=== PATIENT | female | born 2000 | race Caucasian/White ===

== ENCOUNTER 2020-08-08 10:28 | Inpatient (IN) | payer OTHER ==
[2020-08-08] MEDS ORDERED: BUTORPHANOL TARTRATE 1 MG/ML VIAL IVPB ONE (15:41)
[2020-08-08] MEDS ORDERED: AMPICILLIN - 2 GM in SODIUM CHLORIDE 100 ML IVPB ONE (15:44)
[2020-08-08] MEDS ORDERED: ELECTROLYTE-148 SOLN 1,000 ML IV SCH (15:45)
[2020-08-08] MEDS ORDERED: AMPICILLIN SODIUM 2 GM VIAL ONE (15:58)
[2020-08-08 16:08] VITALS: BMI 34.2
[2020-08-08] MEDS ORDERED: BUTORPHANOL TARTRATE 2 MG/ML VIAL ONE (16:38)
[2020-08-08] MEDS ORDERED: PROMETHAZINE HCL 25 MG/1 ML VIAL ONE (16:39)
[2020-08-08 16:55] LABS: BASO % 0.2 % (0-2.0); EOS % 0.2 % (0-4.5); HEMOGLOBIN 12.6 GM/dL (10.7-15.3); LYMPH % 12.8 % (8-40); MCH 27.1 pg (25.7-33.7); MCHC 32.4 g/dl (32.0-36.0); MEAN CELL VOLUME 83.6 fl (80-96); MONO % 7.2 % (3.8-10.2); NEUT % 79.6 % (42.8-82.8); PLATELET COUNT 173 K/MM3 (134-434); RBC 4.66 M/mm3 (3.60-5.2); RDW 16.1 % (11.6-15.6); WHITE BLOOD COUNT 8.1 K/mm3 (4.0-10.0)
[2020-08-08 17:05] LABS: INR 0.97 (0.83-1.09); PROTHROMBIN TIME (PATIENT) 11.8 SEC (9.7-13.0)
[2020-08-08 17:08] LABS: ACTIVATED PTT 29.2 SECONDS (25.2-36.5)
[2020-08-08 17:11] LABS: POTASSIUM 4.1 mmol/L (3.5-5.1)
[2020-08-08 17:13] LABS: BLOOD UREA NITROGEN 7.6 mg/dL (7-18); CALCIUM 9.3 mg/dL (8.5-10.1)
[2020-08-08 17:16] LABS: CREATININE 0.4 mg/dL (0.55-1.3)
[2020-08-08] MEDS ORDERED: OXYTOCIN 20 UNITS in 0.9% NS 20 UNIT/1,000 ML INFUS.BAG IV ONE ×2 (18:27→22:18)
[2020-08-08] MEDS ORDERED: LIDOCAINE HCL 1% PRESERVATIVE FREE - 30ML VIAL ONE (18:27)
[2020-08-08] MEDS: AMPICILLIN - 1 GM in SODIUM CHLORIDE 100 ML IVPB SCH (19:00)
[2020-08-08] MEDS ORDERED: AMPICILLIN SODIUM 1 GM VIAL ONE (19:03)
[2020-08-08] MEDS ORDERED: IBUPROFEN 600 MG TABLET (FP) PO PRN (19:39)
[2020-08-08] MEDS ORDERED: BENZOCAINE 20% 57 GM BOTTLE TP PRN (19:39)
[2020-08-08] MEDS ORDERED: WITCH HAZEL 50% (TUCKS) 40 PAD/JAR PAD TP PRN (19:39)
[2020-08-08] MEDS ORDERED: BENZOCAINE 28 GM HEMORRHOIDAL OINTMENT TP PRN (19:39)
[2020-08-08] MEDS ORDERED: BISACODYL 10 MG SUPP.RECT RC PRN (19:39)
[2020-08-08] MEDS ORDERED: ACETAMINOPHEN 325 MG TABLET (FP) PO PRN (19:39)
[2020-08-08] MEDS ORDERED: OXYTOCIN 20 UNITS in 0.9% NS 20 UNIT/1,000 ML INFUS.BAG IV SCH (19:45)
[2020-08-08 20:10] LABS: CORD BASE EXCESS -3.8 mmol/L (0-2); CORD HCO3 20.8 mmHg (20-29); CORD pH 7.368 (7.14-7.44)
[2020-08-09] MEDS: AMPICILLIN - 1 GM in SODIUM CHLORIDE 100 ML IVPB SCH (04:23)
[2020-08-09 08:10] LABS: BASO % 0.3 % (0-2.0); EOS % 0.7 % (0-4.5); HEMATOCRIT 32.4 % (32.4-45.2); HEMOGLOBIN 10.8 GM/dL (10.7-15.3); LYMPH % 20.4 % (8-40); MCH 28.4 pg (25.7-33.7); MCHC 33.2 g/dl (32.0-36.0); MEAN CELL VOLUME 85.6 fl (80-96); MEAN PLT VOLUME 11.1 fl (7.5-11.1); MONO % 9.1 % (3.8-10.2); NEUT % 69.5 % (42.8-82.8); PLATELET COUNT 136 K/MM3 (134-434); RBC 3.79 M/mm3 (3.60-5.2); RDW 16.1 % (11.6-15.6); WHITE BLOOD COUNT 7.8 K/mm3 (4.0-10.0)
[2020-08-09 08:14] LABS: CALCIUM 8.5 mg/dL (8.5-10.1)
[2020-08-09 08:17] LABS: CREATININE 0.4 mg/dL (0.55-1.3)
[2020-08-09] MEDS ORDERED: SENNOSIDES/DOCUSATE COMBO (SENNA PLUS) TABLET (UD) PO PRN (22:00)
[2020-08-10 09:19] VITALS: BP 122/70; PULSE 99; TEMP 97.9
[2020-08-15 16:09] LABS: POC NITRAZINE POS
== END 2020-08-10 11:35 | disposition home or self-care (01) | DRG 560 ==
LOC: JDEL 10:28 → JLDR 15:30 → J3W 22:25
PROVIDERS: ADMIT Student in an Organized Health Care Education/Training Program; ATTEND Student in an Organized Health Care Education/Training Program
PROC: 10E0XZZ Delivery of Products of Conception, External Approach (ICD-10-PCS; principal; 2020-08-08)
PROC: 0HQ9XZZ Repair Perineum Skin, External Approach (ICD-10-PCS; 2020-08-08)
DX: O70.0 First degree perineal laceration during delivery (principal); Z3A.39 39 weeks gestation of pregnancy; Z37.0 Single live birth
CPT/HCPCS: 36415; 36600; 59025; 59409; 80048; 82803; 83986-QW; 85025; 85610; 85730; 86780; 86850; 86900; 86901; C9803; U0003

== ENCOUNTER 2020-11-06 12:53 | Emergency (ER) | payer OTHER ==
[2020-11-06 13:19] VITALS: BP 117/70; PULSE 76; TEMP 97.5; BMI 30.2
== END 2020-11-06 13:34 | disposition home or self-care (01) ==
LOC: JERFT 12:53
DX: M67.432 Ganglion, left wrist (principal)
CPT/HCPCS: 99282-25

== ENCOUNTER 2022-11-11 11:23 | Emergency (ER) | payer OTHER ==
[2022-11-11 11:27] VITALS: BP 128/82; PULSE 108; RESP 18; TEMP 98; BMI 34.0
[2022-11-11] MEDS ORDERED: IBUPROFEN 600 MG TABLET (FP) PO ONE ×2 (12:50→12:52)
== END 2022-11-11 12:56 | disposition home or self-care (01) ==
LOC: JERFT 11:23
DX: S93.402A Sprain of unspecified ligament of left ankle, initial encounter (principal); W10.8XXA Fall (on) (from) other stairs and steps, initial encounter; Y93.01 Activity, walking, marching and hiking
CPT/HCPCS: 73610-TC-LT-FY; 73630-TC-LT; 99283-25

== ENCOUNTER 2023-02-26 20:10 | Emergency (ER) | payer OTHER ==
[2023-02-26 20:14] VITALS: BP 112/76; PULSE 95; RESP 16; TEMP 98.2; BMI 34.0
[2023-02-26] MEDS ORDERED: ACETAMINOPHEN 500 MG TABLET (FP) PO ONE (21:32)
[2023-02-26] MEDS ORDERED: ACETAMINOPHEN 500 MG TABLET (FP) ONE (21:36)
[2023-02-26 22:02] LABS: PH,URINE 7.5 (5.0-8.0); URINE APPEARANCE CLEAR; URINE BILIRUBIN NEGATIVE (NEGATIVE); URINE COLOR YELLOW; URINE GLUCOSE (UA) NEGATIVE (NEGATIVE); URINE KETONE NEGATIVE (NEGATIVE); URINE LEUK ESTERASE NEGATIVE (NEGATIVE); URINE NITRITE NEGATIVE (NEGATIVE); URINE PROTEIN NEGATIVE (NEGATIVE)
== END 2023-02-26 23:02 | disposition home or self-care (01) ==
LOC: JERFT 20:10
DX: G44.209 Tension-type headache, unspecified, not intractable (principal); Z20.822 Contact with and (suspected) exposure to COVID-19
CPT/HCPCS: 0241U-QW; 81003; 87651; 99283-25

== ENCOUNTER 2024-04-26 13:55 | Emergency (ER) | payer OTHER ==
[2024-04-26 14:07] VITALS: BP 119/81; PULSE 101; RESP 18; TEMP 98.2; BMI 34.0
[2024-04-26] MEDS ORDERED: IBUPROFEN 600 MG TABLET (FP) PO ONE (15:23)
[2024-04-26] MEDS: IBUPROFEN 600 MG TABLET (FP) PO ONE (15:27)
== END 2024-04-26 15:29 | disposition home or self-care (01) ==
LOC: JER 13:55
DX: N61.1 Abscess of the breast and nipple (principal); N64.4 Mastodynia
CPT/HCPCS: 99283-25

== ENCOUNTER 2024-05-05 18:27 | Emergency (ER) | payer OTHER ==
[2024-05-05 18:40] VITALS: BP 112/77; PULSE 80; RESP 18; TEMP 98.6; BMI 35.2
[2024-05-05 19:58] LABS: BASO % 0.3 % (0-2.0); EOS % 1.8 % (0-4.5); HEMATOCRIT 42.7 % (32.4-45.2); HEMOGLOBIN 14.3 GM/dL (10.7-15.3); LYMPH % 34.4 % (8-40); MCH 28.1 pg (25.7-33.7); MCHC 33.5 g/dl (32.0-36.0); MEAN CELL VOLUME 83.8 fl (80-96); MEAN PLT VOLUME 10.7 fl (7.5-11.1); MONO % 6.1 % (3.8-10.2); NEUT % 57.4 % (42.8-82.8); PH,URINE 7.5 (5.0-8.0); PLATELET COUNT 198 10^3/uL (134-434); RBC 5.09 M/mm3 (3.60-5.2); RDW 14.4 % (11.6-15.6); URINE APPEARANCE CLEAR; URINE BILIRUBIN NEGATIVE (NEGATIVE); URINE COLOR YELLOW; URINE GLUCOSE (UA) NEGATIVE (NEGATIVE); URINE KETONE NEGATIVE (NEGATIVE); URINE LEUK ESTERASE NEGATIVE (NEGATIVE); URINE NITRITE NEGATIVE (NEGATIVE); URINE PROTEIN NEGATIVE (NEGATIVE); WHITE BLOOD COUNT 6.8 K/mm3 (4.0-10.0)
[2024-05-05 20:13] LABS: POTASSIUM 3.9 mmol/L (3.5-5.1)
[2024-05-05 20:15] LABS: CALCIUM 9.4 mg/dL (8.5-10.1)
[2024-05-05 20:16] LABS: ALBUMIN 4.3 g/dl (3.4-5.0); BLOOD UREA NITROGEN 10.3 mg/dL (7-18)
[2024-05-05 20:19] LABS: CREATININE 0.6 mg/dL (0.55-1.3)
[2024-05-05 20:20] LABS: BILIRUBIN,TOTAL 0.5 mg/dL (0.2-1); TOT PROT 8.3 g/dl (6.4-8.2)
[2024-05-05] MEDS: PANTOPRAZOLE SODIUM 40 MG VIAL IVPUSH ONE (20:20)
[2024-05-05 21:06] LABS: HIV INTERPRETATION NEGATIVE (NEGATIVE)
== END 2024-05-05 22:20 | disposition home or self-care (01) ==
LOC: JER 18:27
DX: R10.11 Right upper quadrant pain (principal); R11.0 Nausea
CPT/HCPCS: 36415; 76705-TC; 80053; 81003; 83690; 84703; 85025; 86803; 87389; 99284-25

== ENCOUNTER 2024-05-24 19:48 | Emergency (ER) | payer OTHER ==
[2024-05-24 19:56] VITALS: BP 118/87; PULSE 105; RESP 18; TEMP 98.3; BMI 34.0
== END 2024-05-24 22:19 | disposition home or self-care (01) ==
LOC: JERFT 19:48 → JER 19:48 → JERFT 22:19
DX: R05.9 Cough, unspecified (principal); R09.81 Nasal congestion; K52.9 Noninfective gastroenteritis and colitis, unspecified; B34.9 Viral infection, unspecified; R51.9 Headache, unspecified; H93.8X3 Other specified disorders of ear, bilateral; Z20.822 Contact with and (suspected) exposure to COVID-19
CPT/HCPCS: 0241U-QW; 99283-25